=== PATIENT | female | born 1980 | race Caucasian/White ===

== ENCOUNTER 2018-03-01 00:22 | Observation (INO) | payer BC, OTHER ==
[2018-03-01] MEDS ORDERED: Sodium Chloride 0.9% 10 ML Syringe FLUSH PRN (00:36)
[2018-03-01] MEDS ORDERED: Sodium Chloride 0.9% 1,000 ML IV ONE (00:36)
[2018-03-01] MEDS ORDERED: Ondansetron 4 MG/2 ML SDV IVPUSH ONE (00:36)
--- NOTE | 2018-03-01 00:51 | EDM.PDOCBH ---
ED HPI GENERAL MEDICAL PROBLEM - General Chief Complaint: Behavioral/Psych Stated Complaint: overdose attempt Time Seen by Provider: 03/01/18 00:35 Source of Information: Reports: Patient, EMS, Family History Limitations: Reports: Intoxication - History of Present Illness INITIAL COMMENTS - FREE TEXT/NARRATIVE: Patient is brought in via EMS after her called EMS after she took 6 trazadone and has had approximately 9-10 beers ingested. Her had apparently threatened to take her children from her custody causing the overdose. She is currently dry heaving and violently nauseated. Approximate time of trazadone ingestion is stated to be 23:45. After visiting with her, she stated she has been having difficulty sleeping so she was going to take 1 of the trazadone to which her replied "I thought you weren't supposed to take these when you are drinking" and she said "1 won't hurt" and he told her to take them all then. She then took 5 more. She flushed the remaining pills. She has been struggling with increased depression and more thoughts of suicide. She has been meeting with counselors and psychiatrists and her medications have been changed several times. She states she sometimes feels she just doesn't want to be here anymore. 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: Psychiatric History: Reports: Depression - Past Surgical History GI Surgical History: Reports: Appendectomy, Bariatric Procedure, Cholecystectomy Female Surgical History: Reports: Section ED ROS GENERAL - Review of Systems Review Of Systems: See Below Constitutional: Reports: No Symptoms HEENT: Reports: No Symptoms Respiratory: Reports: No Symptoms Cardiovascular: Reports: No Symptoms Endocrine: Reports: No Symptoms GI/Abdominal: Reports: Nausea, Vomiting : Reports: No Symptoms Musculoskeletal: Reports: No Symptoms Skin: Reports: No Symptoms Neurological: Reports: No Symptoms Psychiatric: Reports: Depression, Other (trazodone overdose) Hematologic/Lymphatic: Reports: No Symptoms Immunologic: Reports: No Symptoms ED EXAM, BEHAVIORAL HEALTH - Physical Exam Exam: See Below Exam Limited By: No Limitations General Appearance: Alert, WD/WN, Moderate Distress Eye Exam: Bilateral Eye: EOMI, Normal Inspection, PERRL Ears: Normal TMs Throat/Mouth: Normal Inspection, Normal Lips, Normal Teeth, Normal Gums, Normal Oropharynx, Normal Voice, No Airway Compromise Head: Atraumatic, Normocephalic Neck: Normal Inspection, Supple, Non-Tender, Full Range of Motion Respiratory/Chest: No Respiratory Distress, Lungs Clear, Normal Breath Sounds, No Accessory Muscle Use, Chest Non-Tender Cardiovascular: Normal Peripheral Pulses, Regular Rate, Rhythm, No Edema, No Gallop, No JVD, No Murmur, No Rub GI/Abdominal: Normal Bowel Sounds, Soft, Non-Tender, No Organomegaly, No Distention, No Abnormal Bruit, No Mass Back Exam: Normal Inspection, Full Range of Motion, NT Extremities: Normal Inspection, Normal Range of Motion, Non-Tender, Normal Capillary Refill, No Pedal Edema Neurological: Alert, Normal Mood/Affect, CN II-XII Intact, Normal Cognition, Normal Gait, Normal Reflexes, No Motor/Sensory Deficits, Oriented x 3 Psychiatric: Alert, Depressed Mood, Other (attempted suicide) Skin Exam: Warm, Dry, Intact, Normal color, No rash COURSE, BEHAVIORAL HEALTH COMP - Course Orders, Labs, Meds: Active Orders 24 hr Category Date Time Status EKG Documentation Completion [RC] STAT Care 03/01/18 00:36 Ordered CBC WITH AUTO DIFF [HEME] Stat Lab 03/01/18 00:36 Ordered COMPREHENSIVE METABOLIC PN,CMP [CHEM] Stat Lab 03/01/18 00:36 Ordered ETHANOL BLOOD MEDICAL [CHEM] Stat Lab 03/01/18 00:36 Ordered TROPONIN I [CHEM] Stat Lab 03/01/18 00:36 Ordered UA W/MICROSCOPIC [URIN] Stat Lab 03/01/18 00:36 Ordered Ondansetron [Zofran] Med 03/01/18 00:36 Once 4 mg IVPUSH ONETIME ONE Sodium Chloride 0.9% [Normal Saline] 1,000 ml Med 03/01/18 00:36 Ordered IV ONETIME Sodium Chloride 0.9% [Saline Flush] Med 03/01/18 00:36 Ordered 10 ml FLUSH ASDIRECTED PRN Saline Lock Insert [OM.PC] Routine Oth 03/01/18 00:36 Ordered Medication Orders Sodium Chloride (Normal Saline) 1,000 mls @ 999 mls/hr IV ONETIME ONE Stop: 03/01/18 01:36 Ondansetron HCl (Zofran) 4 mg IVPUSH ONETIME ONE Stop: 03/01/18 00:37 Sodium Chloride (Saline Flush) 10 ml FLUSH ASDIRECTED PRN PRN Reason: Keep Vein Open Medications Generic Name Dose Route Start Last Admin Trade Name Freq PRN Reason Stop Dose Admin Sodium Chloride 1,000 mls @ 999 mls/hr 03/01/18 00:36 Normal Saline IV 03/01/18 01:36 ONETIME ONE Ondansetron HCl 4 mg 03/01/18 00:36 Zofran IVPUSH 03/01/18 00:37 ONETIME ONE Sodium Chloride 10 ml 03/01/18 00:36 Saline Flush FLUSH ASDIRECTED PRN Keep Vein Open Departure - Departure Time of Disposition: 01:38 Disposition: Refer to Observation Condition: Good Clinical Impression: Depressive disorder, Drug overdose, intentional, Alcohol abuse - Discharge Information *PRESCRIPTION DRUG MONITORING PROGRAM REVIEWED*: Not Applicable *COPY OF PRESCRIPTION DRUG MONITORING REPORT IN PATIENT BERE: Not Applicable Instructions: Drug Overdose, Suicidal Feelings: How to Help Yourself, Helping Someone Who is Suicidal, Major Depressive Disorder, Adult, [id number] Forms: ED Department Discharge - Problem List & Annotations (1) Alcohol abuse SNOMED Code(s): 13202178 Code(s): F10.10 - ALCOHOL ABUSE, UNCOMPLICATED Status: Acute Priority: Medium (2) Drug overdose, intentional SNOMED Code(s): 09254564 Code(s): T50.902A - POISONING BY UNSP DRUG/MEDS/BIOL SUBST, SELF-HARM, INIT Status: Acute Priority: Medium Qualifiers: Encounter type: initial encounter Qualified Code(s): T50.902A - Poisoning by unspecified drugs, medicaments and biological substances, intentional self- harm, initial encounter - Problem List Review Problem List Initiated/Reviewed/Updated: Yes - My Orders Last 24 Hours: My Active Orders 03/01/18 00:36 EKG Documentation Completion [RC] STAT CBC WITH AUTO DIFF [HEME] Stat COMPREHENSIVE METABOLIC PN,CMP [CHEM] Stat ETHANOL BLOOD MEDICAL [CHEM] Stat TROPONIN I [CHEM] Stat UA W/MICROSCOPIC [URIN] Stat Ondansetron [Zofran] 4 mg IVPUSH ONETIME ONE Sodium Chloride 0.9% [Normal Saline] 1,000 ml IV ONETIME Sodium Chloride 0.9% [Saline Flush] 10 ml FLUSH ASDIRECTED PRN Saline Lock Insert [OM.PC] Routine - Assessment/Plan Last 24 Hours: My Active Orders 03/01/18 00:36 EKG Documentation Completion [RC] STAT CBC WITH AUTO DIFF [HEME] Stat COMPREHENSIVE METABOLIC PN,CMP [CHEM] Stat ETHANOL BLOOD MEDICAL [CHEM] Stat TROPONIN I [CHEM] Stat UA W/MICROSCOPIC [URIN] Stat Ondansetron [Zofran] 4 mg IVPUSH ONETIME ONE Sodium Chloride 0.9% [Normal Saline] 1,000 ml IV ONETIME Sodium Chloride 0.9% [Saline Flush] 10 ml FLUSH ASDIRECTED PRN Saline Lock Insert [OM.PC] Routine Assessment:: Alcohol abuse Intentional drug overdose Plan: Plan: Admit to observation 1. alcohol abuse: supplement with thiamine, folic acid, hydration, continuous telemetry, social service consultation for inpatient treatment 2. intentional drug overdose: continuous telemetry, hydration, zofran for nausea
[2018-03-01 01:21] LABS: CHLORIDE,CL 106 mmol/L (98-107); SODIUM,NA 141 mmol/L (136-145)
[2018-03-01 01:22] LABS: ANION GAP 14.5 mmol/L (10-20)
[2018-03-01] MEDS ORDERED: Acetaminophen/HYDROcodone 325-5 MG Tab PO PRN (01:42)
[2018-03-01] MEDS ORDERED: Ondansetron 4 MG/2 ML SDV IV PRN (01:42)
[2018-03-01] MEDS ORDERED: Ibuprofen 200 MG Tab PO PRN (01:42)
[2018-03-01] MEDS ORDERED: Thiamine 100 MG Tab PO ONE (01:46)
[2018-03-01] MEDS ORDERED: traZODone 50 MG Tab PO PRN (01:47)
[2018-03-01] MEDS: Folic Acid 1 MG Tab PO SCH ×2 (02:52→09:29)
[2018-03-01] MEDS: Lactated Ringers 1,000 ML IV SCH ×2 (02:53→10:37)
[2018-03-01] MEDS ORDERED: Sertraline 100 MG Tab PO SCH (08:00)
[2018-03-01] MEDS ORDERED: ARIPIPRAZOLE 2 MG PO SCH (08:00)
[2018-03-01] MEDS ORDERED: LAMOTRIGINE 75 MG PO SCH (08:00)
[2018-03-01 10:50] LABS: CHLORIDE,CL 110 mmol/L (98-107); SODIUM,NA 142 mmol/L (136-145)
[2018-03-01 10:56] LABS: ANION GAP 10.5 mmol/L (10-20)
--- NOTE | 2018-03-01 14:01 | PCM.DCSUM1 ---
Discharge Summary - Hospital Course HPI Initial Comments: Patient is brought in via EMS after her called EMS after she took 6 trazadone and has had approximately 9-10 beers ingested. Her had apparently threatened to take her children from her custody causing the overdose. She was dry heaving and violently nauseated. Approximate time of trazadone ingestion is stated to be 23:45. After visiting with her, she stated she has been having difficulty sleeping so she was going to take 1 of the trazadone to which her replied "I thought you weren't supposed to take these when you are drinking" and she said "1 won't hurt" and he told her to take them all then. She then took 5 more. She flushed the remaining pills. She has been struggling with increased depression and more thoughts of suicide. She has been meeting with counselors and psychiatrists and her medications have been changed several times. She states she sometimes feels she just doesn' t want to be here anymore. The patient and have a long standing history of relationship issues. The patient has been drinking as a coping mechanism. The patient did not intentionally take more Trazodone. It was a knee-jerk reaction because she was fighting with her . Diagnosis: Stroke: No Modified Uziel Scale: No Symptoms at All Modified Assumption Scale Score: 0 - Discharge Data Discharge Date: 03/01/18 Discharge Disposition: Home, Self-Care 01 Condition: Stable - Patient Summary/Data Consults: Consultations 03/01/18 01:42 Consult to Case Management/Elevators Inspector [CONS] Routine Hospital Course: Patient remained hemodynamically stable. Afebrile. Patient tolerated by mouth fluids and food without any problems. The patient did not have any adverse events related to alcohol or trazodone. The patient did not have any problems with urination or bowel movements. - Patient Instructions Diet: Regular Diet as Tolerated Activity: Rest and Relax Today Driving: May Drive Today Showering/Bathing: May Shower Notify Provider of: Fever, Nausea and/or Vomiting - Discharge Plan *PRESCRIPTION DRUG MONITORING PROGRAM REVIEWED*: Not Applicable *COPY OF PRESCRIPTION DRUG MONITORING REPORT IN PATIENT BERE: Not Applicable Home Medications: Home Meds ARIPiprazole [Aripiprazole] 2 mg PO DAILY 03/01/18 [History] Sertraline HCl 100 mg PO DAILY 03/01/18 [History] lamoTRIgine [Lamotrigine] 75 mg PO DAILY 03/01/18 [History] traZODone HCl [Trazodone HCl] 50 mg PO BEDTIME PRN 03/01/18 [History] Patient Handouts: Major Depressive Disorder, Adult, [id number], Suicidal Feelings: How to Help Yourself, Helping Someone Who is Suicidal, Drug Overdose Referrals: Mel Phipps PA-C [Primary Care Provider] - 03/07/18 12:40 pm (Follow up appointment with Mel Phipps on , March 07, 2018) - Discharge Summary/Plan Comment DC Time >30 min.: Yes Discharge Summary/Plan Comment: Patient will be discharged home today into the care of her . The patient will be scheduled for a follow-up appointment with Mel Phipps next week. No changes with any home medications. The patient was given information for marriage counseling as well as other mental health professionals. The patient was stable at the time of discharge. - General Info Date of Service: 03/01/18 Functional Status: Reports: Pain Controlled, Tolerating Diet, Ambulating, Urinating Numeric/FACES Score: 0 - Review of Systems General: Denies: Fever, Weakness, Chills Pulmonary: Denies: Shortness of Breath, Cough Cardiovascular: Denies: Chest Pain, Palpitations Gastrointestinal: Denies: Abdominal Pain, Nausea, Vomiting Skin: Reports: No Symptoms Neurological: Reports: No Symptoms - Patient Data Vitals - Most Recent: Last Vital Signs Temp 36.6 C 03/01/18 13:31 Pulse 84 03/01/18 13:31 Resp 16 03/01/18 13:31 BP 127/71 03/01/18 13:31 Pulse Ox 98 03/01/18 13:31 Weight - Most Recent: 82.781 kg I&O - Last 24 hours: Intake & Output 02/28/18 03/01/18 03/01/18 22:59 06:59 14:59 Intake Total 2183 Balance 2183 Lab Results - Last 24 hrs: Laboratory Results - last 24 hr 03/01/18 03/01/18 03/01/18 Range/Units 00:45 00:45 01:25 WBC 7.1 (4.0-10.0) x10^3/uL RBC 3.88 L (4.00-5.50) x10^6/uL Hgb 9.6 L (12.0-16.0) g/dL Hct 30.7 L (33.0-47.0) % MCV 79.1 (78.0-93.0) fL MCH 24.7 L (26.0-32.0) pg MCHC 31.3 L (32.0-36.0) g/dL RDW Coeff of Jose Miguel 15.8 H (10.0-15.0) % Plt Count 247 (130-400) x10^3/uL Neut % (Auto) 35.9 L (50.0-80.0) % Lymph % (Auto) 55.3 H (25.0-50.0) % [place] % (Auto) 6.0 (2.0-11.0) % Eos % (Auto) 2.4 (0.0-4.0) % Baso % (Auto) 0.4 (0.2-1.2) % Sodium 141 (136-145) mmol/L Potassium 3.5 (3.5-5.1) mmol/L Chloride 106 (98-107) mmol/L Carbon Dioxide 24 (21-32) mmol/L Anion Gap 14.5 (10-20) mmol/L BUN 6 L (7-18) mg/dL Creatinine 0.7 (0.55-1.02) mg/dL Est Cr Clr Drug Dosing TNP Estimated GFR (MDRD) > 60 Glucose 80 (74-106) mg/dL Calcium 8.7 (8.5-10.1) mg/dL Corrected Calcium 9.10 (8.5-10.1) mg/dL Magnesium (1.8-2.4) mg/dL Total Bilirubin 0.2 (0.2-1.0) mg/dL AST 16 (15-37) U/L ALT 18 (14-59) U/L Alkaline Phosphatase 86 (46-116) U/L Troponin I < 0.017 (<=0.056) ng/mL Total Protein 7.8 (6.4-8.2) g/dL Albumin 3.5 (3.4-5.0) g/dL Globulin 4.3 Albumin/Globulin Ratio 0.81 Urine Color Yellow (YELLOW) Urine Appearance Slightly cloudy H (CLEAR) Urine pH 6.5 (5.0-8.0) Ur Specific [place] <=1.005 Urine Protein Negative (NEGATIVE) mg/dL Urine Glucose (UA) Negative (NEGATIVE) mg/dL Urine Ketones Negative (NEGATIVE) mg/dL Urine Occult Blood Moderate H (NEGATIVE) Urine Nitrite Negative (NEGATIVE) Urine Bilirubin Negative (NEGATIVE) Urine Urobilinogen 0.2 (0.2) EU/dL Ur Leukocyte Esterase Negative (NEGATIVE) Urine RBC 5-10 H (NOT SEEN) /HPF Urine WBC 0-5 (NOT SEEN) /HPF Ur Squamous Epith Cells Few H (NEGATIVE) /HPF Urine Bacteria Rare (NEGATIVE) /HPF Urine Mucus Not seen (NEGATIVE) /LPF Urine Opiates Screen (NEGATIVE) Ur Buprenorphine Scrn (NEGATIVE) Ur Oxycodone Screen (NEGATIVE) Urine Methadone Screen (NEGATIVE) Ur Barbiturates Screen (NEGATIVE) Ur Tricyclics Screen (NEGATIVE) Ur Amphetamine Screen (NEGATIVE) U Methamphetamines Scrn (NEGATIVE) Urine MDMA Screen (NEGATIVE) U Benzodiazepines Scrn (NEGATIVE) U Cocaine Metab Screen (NEGATIVE) U Marijuana (THC) Screen (NEGATIVE) Ethyl Alcohol 172 H (0-3) mg/dL 03/01/18 03/01/18 Range/Units 01:25 10:25 WBC (4.0-10.0) x10^3/uL RBC (4.00-5.50) x10^6/uL Hgb (12.0-16.0) g/dL Hct (33.0-47.0) % MCV (78.0-93.0) fL MCH (26.0-32.0) pg MCHC (32.0-36.0) g/dL RDW Coeff of Jose Miguel (10.0-15.0) % Plt Count (130-400) x10^3/uL Neut % (Auto) (50.0-80.0) % Lymph % (Auto) (25.0-50.0) % [place] % (Auto) (2.0-11.0) % Eos % (Auto) (0.0-4.0) % Baso % (Auto) (0.2-1.2) % Sodium 142 (136-145) mmol/L Potassium 4.5 (3.5-5.1) mmol/L Chloride 110 H (98-107) mmol/L Carbon Dioxide 26 (21-32) mmol/L Anion Gap 10.5 (10-20) mmol/L BUN 8 (7-18) mg/dL Creatinine 0.8 (0.55-1.02) mg/dL Est Cr Clr Drug Dosing 94.54 Estimated GFR (MDRD) > 60 Glucose 80 (74-106) mg/dL Calcium 8.2 L (8.5-10.1) mg/dL Corrected Calcium (8.5-10.1) mg/dL Magnesium 1.8 (1.8-2.4) mg/dL Total Bilirubin (0.2-1.0) mg/dL AST (15-37) U/L ALT (14-59) U/L Alkaline Phosphatase (46-116) U/L Troponin I (<=0.056) ng/mL Total Protein (6.4-8.2) g/dL Albumin (3.4-5.0) g/dL Globulin Albumin/Globulin Ratio Urine Color (YELLOW) Urine Appearance (CLEAR) Urine pH (5.0-8.0) Ur Specific [place] Urine Protein (NEGATIVE) mg/dL Urine Glucose (UA) (NEGATIVE) mg/dL Urine Ketones (NEGATIVE) mg/dL Urine Occult Blood (NEGATIVE) Urine Nitrite (NEGATIVE) Urine Bilirubin (NEGATIVE) Urine Urobilinogen (0.2) EU/dL Ur Leukocyte Esterase (NEGATIVE) Urine RBC (NOT SEEN) /HPF Urine WBC (NOT SEEN) /HPF Ur Squamous Epith Cells (NEGATIVE) /HPF Urine Bacteria (NEGATIVE) /HPF Urine Mucus (NEGATIVE) /LPF Urine Opiates Screen Negative (NEGATIVE) Ur Buprenorphine Scrn Negative (NEGATIVE) Ur Oxycodone Screen Negative (NEGATIVE) Urine Methadone Screen Negative (NEGATIVE) Ur Barbiturates Screen Negative (NEGATIVE) Ur Tricyclics Screen Negative (NEGATIVE) Ur Amphetamine Screen Negative (NEGATIVE) U Methamphetamines Scrn Negative (NEGATIVE) Urine MDMA Screen Negative (NEGATIVE) U Benzodiazepines Scrn Negative (NEGATIVE) U Cocaine Metab Screen Negative (NEGATIVE) U Marijuana (THC) Screen Negative (NEGATIVE) Ethyl Alcohol < 3 (0-3) mg/dL Med Orders - Current: Current Medications Hydrocodone Bitart/Acetaminophen ([place] 325-5 Mg) 1 tab PO Q4H PRN PRN Reason: Pain (moderate 4-6) Folic Acid (Folic Acid) 1 mg PO DAILY DANIA Last Admin: 03/01/18 09:29 Dose: 1 mg Lactated Ringer's (Ringers, Lactated) 1,000 mls @ 125 mls/hr IV ASDIRECTED [facility] Last Admin: 03/01/18 10:37 Dose: 125 mls/hr Ibuprofen (Motrin) 600 mg PO Q6H PRN PRN Reason: Pain (mild 1-3) Non-Formulary Medication (Aripiprazole) 2 mg PO DAILY [facility] Non-Formulary Medication (Lamotrigine [Lamotrigine]) 75 mg PO DAILY [facility] Ondansetron HCl (Zofran) 4 mg IV Q4H PRN PRN Reason: Nausea/Vomiting Sertraline HCl (Zoloft) 100 mg PO DAILY [facility] Last Admin: 03/01/18 09:29 Dose: 100 mg Sodium Chloride (Saline Flush) 10 ml FLUSH ASDIRECTED PRN PRN Reason: Keep Vein Open Last Admin: 03/01/18 02:55 Dose: 10 ml Trazodone HCl (Trazodone) 25 - 100 mg PO BEDTIME PRN PRN Reason: Sleep Discontinued Medications Sodium Chloride (Normal Saline) 1,000 mls @ 999 mls/hr IV ONETIME ONE Stop: 03/01/18 01:36 Last Admin: 03/01/18 00:50 Dose: 999 mls/hr Ondansetron HCl (Zofran) 4 mg IVPUSH ONETIME ONE Stop: 03/01/18 00:37 Last Admin: 03/01/18 00:54 Dose: 4 mg Thiamine HCl (Vitamin B-1) 100 mg PO ONETIME ONE Stop: 03/01/18 01:47 Last Admin: 03/01/18 02:51 Dose: 100 mg - Exam General: Reports: Alert, Oriented, Cooperative, No Acute Distress HEENT: Reports: Pupils Equal, Pupils Reactive Neck: Reports: Supple Lungs: Reports: Clear to Auscultation, Normal Respiratory Effort Cardiovascular: Reports: Regular Rate, Regular Rhythm GI/Abdominal Exam: Normal Bowel Sounds, Soft, Non-Tender Skin: Reports: Warm, Dry, Intact Neurological: Reports: No New Focal Deficit Psy/Mental Status: Reports: Alert, Normal Affect, Normal Mood *Q Meaningful Use (DIS) - VTE *Q VTE Criteria *Q: No risk for falls at time of discharge
== END 2018-03-01 15:00 | disposition home or self-care (01) ==
LOC: VM.ED 00:22 → VM.MS 01:25
PROVIDERS: ADMIT Nurse Practitioner Family; ATTEND Nurse Practitioner Family
DX: T43.212A Poisoning by selective serotonin and norepinephrine reuptake inhibitors, intentional self-harm, initial encounter (principal); F10.10 Alcohol abuse, uncomplicated; Y90.6 Blood alcohol level of 120-199 mg/100 ml; Z79.899 Other long term (current) drug therapy
CPT/HCPCS: 36415; 80048; 80053; 80305-QW; 81001; 83735; 84484; 85025; 93005; 96361; 96374; 99285; A9270-GY; G0378; G0480; J2405; J7030; J7050; J7120

== ENCOUNTER 2019-02-19 16:08 | Emergency (ER) | payer BC ==
--- NOTE | 2019-02-19 16:59 | EDM.PDOC ---
ED HPI GENERAL MEDICAL PROBLEM - General Chief Complaint: Back Pain or Injury Stated Complaint: SEVERE BACK PAIN Time Seen by Provider: 02/19/19 16:40 Source of Information: Reports: Patient History Limitations: Reports: No Limitations - History of Present Illness INITIAL COMMENTS - FREE TEXT/NARRATIVE: Patient states last night approximately 7 or 8:00 she went to the restroom and had intense burning with urination after just a little volume with pain radiating from her lower back up into her upper back she states that it hurt all night "better states this morning upon urinating same signs and symptoms repeated itself she describes it as an 8 out of 10 pain sharp stabbing from her bladder radiating around both sides into her lower back and radiating up to her mid back She denies any fever chills nausea vomiting urinary frequency or hesitancy no night sweats or fatigue no abdominal pain has been eating and drinking fine tried one Tylenol last night no relief Duration: Day(s): Quality: Reports: Sharp, Stabbing, Throbbing Severity: Severe Worsens with: Reports: Other (Urination) Treatments 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 Middle Back Pain Score (Numeric/FACES): 8 - Related Data Allergies Allergy/AdvReac Type Severity Reaction Status Date / Time No Known Allergies Allergy Verified 02/19/19 16:35 Home Meds: Home Meds Sertraline HCl 75 mg DAILY 02/19/19 [History] Past Medical History 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: Psychiatric History: Reports: Depression - Past Surgical History GI Surgical History: Reports: Appendectomy, Bariatric Procedure, Cholecystectomy Female Surgical History: Reports: Section, Hysterectomy Social & Family History - Tobacco Use Smoking Status *Q: Current Every Day Smoker Years of Tobacco use: 20 Packs/Tins Daily: 0.5 - Caffeine Use Caffeine Use: Reports: Coffee - Alcohol Use Days Per Week of Alcohol Use: 5 Number of Drinks Per Day: 3 Total Drinks Per Week: 15 - Recreational Drug Use Recreational Drug Use: No ED ROS GENERAL - Review of Systems Review Of Systems: See Below Constitutional: Denies: Fever, Chills, Malaise, Weakness, Fatigue, Night Sweats , Decreased Appetite HEENT: Reports: No Symptoms Respiratory: Reports: No Symptoms Cardiovascular: Reports: No Symptoms Endocrine: Reports: No Symptoms GI/Abdominal: Denies: Abdominal Pain, Constipation, Decreased Appetite, Distension, Nausea, Vomiting : Reports: Dysuria, Flank Pain, Pain. Denies: Discharge, Frequency, Hematuria , Incontinence, Urgency, Urinary Retention Musculoskeletal: Reports: Back Pain Skin: Reports: No Symptoms Neurological: Reports: No Symptoms Psychiatric: Reports: No Symptoms Immunologic: Reports: No Symptoms ED EXAM,LOWER BACK PAIN/INJURY - Physical Exam Exam: See Below Exam Limited By: No Limitations General Appearance: Alert, WD/WN, No Apparent Distress, Other (PT noted from across the room text messaging on phone and watching video no acute distress all vitals are within normal limits upon entering the room patient started writhing in pain) Eye Exam: Bilateral Eye: EOMI, PERRL Throat/Mouth: Normal Inspection, Normal Lips, Normal Teeth, Normal Gums, Normal Oropharynx, Normal Voice, No Airway Compromise Neck: Full Range of Motion Respiratory/Chest: No Respiratory Distress, Lungs Clear, Normal Breath Sounds, No Accessory Muscle Use, Chest Non-Tender Cardiovascular: Normal Peripheral Pulses, Regular Rate, Rhythm, No Edema, No Gallop, No JVD, No Murmur, No Rub GI/Abdominal: Normal Bowel Sounds, Soft, Non-Tender, No Organomegaly, No Distention Back Exam: Normal Inspection, Full Range of Motion. No: CVA Tenderness (L), CVA Tenderness (R), Decreased Range of Motion Extremities: Normal Inspection, Normal Range of Motion, Non-Tender, No Pedal Edema Neurological: Alert, Normal Mood/Affect, Normal Dorsiflexion, CN II-XII Intact, Normal Plantar Flexion, Normal Gait, No Motor/Sensory Deficits, Oriented x 3 Skin Exam: Warm, Dry, Intact, Normal Color, No Rash Course - Vital Signs Text/Narrative:: Urinalysis is ordered at this time Rechecked patient actively playing on phone no acute distress PT states she has chronic anemia does not know what type has never had been transfused before CBC today hemoglobin and hematocrit 7/25 BUN/creatinine 13/0.07 Urine positive protein and positive blood and no nitrites positive leuk positive white blood cells will treat with Septra DS one by mouth every 12 hours 5 days and send urine C&S Spoke with Dr. Alex Phipps he agrees patient is okay to be seen outpatient secondary she is not symptomatic with the anemia have her call the clinic first thing in the morning and she will get an appointment to be seen tomorrow Last Recorded V/S: Last Vital Signs Temp 36.4 C 02/19/19 16:15 Pulse 95 02/19/19 16:15 Resp 18 02/19/19 16:15 BP 127/77 02/19/19 16:15 Pulse Ox - Orders/Labs/Meds Labs: Laboratory Tests 02/19/19 02/19/19 02/19/19 Range/Units 16:50 17:39 17:39 WBC 7.3 (4.0-10.0) x10^3/uL RBC 3.57 L (4.00-5.50) x10^6/uL Hgb 7.1 L D (12.0-16.0) g/dL Hct 25.3 L (33.0-47.0) % MCV 70.9 L D (78.0-93.0) fL MCH 19.9 L (26.0-32.0) pg MCHC 28.1 L (32.0-36.0) g/dL RDW Coeff of Jose Miguel 19.8 H (10.0-15.0) % Plt Count 192 (130-400) x10^3/uL Neut % (Auto) 63.9 (50.0-80.0) % Lymph % (Auto) 26.9 (25.0-50.0) % [place] % (Auto) 7.7 (2.0-11.0) % Eos % (Auto) 1.1 (0.0-4.0) % Baso % (Auto) 0.4 (0.2-1.2) % Sodium 142 (136-145) mmol/L Potassium 4.1 (3.5-5.1) mmol/L Chloride 107 (98-107) mmol/L Carbon Dioxide 27 (21-32) mmol/L Anion Gap 12.1 (10-20) mmol/L BUN 13 (7-18) mg/dL Creatinine 0.7 (0.55-1.02) mg/dL Est Cr Clr Drug Dosing 107.00 mL/min Estimated GFR (MDRD) > 60 Glucose 82 (74-106) mg/dL Calcium 8.5 (8.5-10.1) mg/dL Urine Color Yellow (YELLOW) Urine Appearance Turbid H (CLEAR) Urine pH 6.0 (5.0-8.0) Ur Specific [place] >=1.030 Urine Protein >=300 H (NEGATIVE) mg/dL Urine Glucose (UA) Negative (NEGATIVE) mg/dL Urine Ketones Negative (NEGATIVE) mg/dL Urine Occult Blood Moderate H (NEGATIVE) Urine Nitrite Negative (NEGATIVE) Urine Bilirubin Negative (NEGATIVE) Urine Urobilinogen 0.2 (0.2) EU/dL Ur Leukocyte Esterase Small H (NEGATIVE) Urine RBC 30-40 H (NOT SEEN) /HPF Urine WBC 50-75 H (NOT SEEN) /HPF Urine WBC Clumps Few Ur Squamous Epith Cells Many H (NEGATIVE) /HPF Amorphous Sediment Few Urine Bacteria Many H (NEGATIVE) /HPF Urine Mucus Many H (NEGATIVE) /LPF Meds: Medications Discontinued Medications Generic Name Dose Route Start Last Admin Trade Name Freq PRN Reason Stop Dose Admin Lactated Ringer's 1,000 mls @ 1,000 mls/hr 02/19/19 17:20 02/19/19 17:40 Ringers, Lactated IV 02/19/19 18:19 1,000 mls/hr ONETIME ONE Administration Departure - Departure Time of Disposition: 18:50 Disposition: Home, Self-Care 01 Condition: Good Clinical Impression: Anemia, Dysuria, UTI (urinary tract infection) - Discharge Information Referrals: Mel Phipps PA-C [Primary Care Provider] - Forms: ED Department Discharge
[2019-02-19] MEDS ORDERED: Lactated Ringers 1,000 ML IV ONE (17:20)
[2019-02-19 18:03] LABS: CHLORIDE,CL 107 mmol/L (98-107); SODIUM,NA 142 mmol/L (136-145)
[2019-02-19 18:13] LABS: ANION GAP 12.1 mmol/L (10-20)
[2019-02-19] MEDS ORDERED: Sulfamethoxazole/Trimethoprim 800-160 MG Tab PO ONE (18:48)
[2019-02-19] MEDS ORDERED: Phenazopyridine 95 MG Tab PO SCH (20:00)
== END 2019-02-19 19:15 | disposition home or self-care (01) ==
LOC: VM.ED 16:08
DX: N39.0 Urinary tract infection, site not specified (principal); D64.9 Anemia, unspecified; F17.210 Nicotine dependence, cigarettes, uncomplicated; Z90.49 Acquired absence of other specified parts of digestive tract; Z79.899 Other long term (current) drug therapy; Z90.710 Acquired absence of both cervix and uterus
CPT/HCPCS: 80048; 81001; 85025; 87086; 87088; 87186; 96360; 99283; A9270; J7120

== ENCOUNTER 2020-02-04 23:36 | Emergency (ER) | payer BC, OTHER ==
[2020-02-05] MEDS ORDERED: Lactated Ringers 1,000 ML IV ONE (00:20)
[2020-02-05] MEDS ORDERED: Ondansetron 4 MG/2 ML SDV IV ONE (00:28)
--- NOTE | 2020-02-05 01:13 | EDM.PDOC ---
ED HPI GENERAL MEDICAL PROBLEM - General Chief Complaint: General Stated Complaint: Fever, dizziness, passed out, headache Time Seen by Provider: 02/04/20 23:55 Source of Information: Reports: Patient History Limitations: Reports: No Limitations - History of Present Illness INITIAL COMMENTS - FREE TEXT/NARRATIVE: Patient comes emergency department today with 2 to 3 days complaints of generalized malaise fatigue low-grade fever. This patient for the last 2 to 3 days is complained of generalized malaise and fatigue. Low-grade fever at home but she did not check. She has been staying away from work but not away from her family. She has had a dry hacking nonproductive cough. No pain in her chest. She has had some nausea without vomiting. She is also had some diarrhea . No hematuria dysuria or urinary frequency. She is unaware of any COVID exposure but she also does complain of loss of taste and smell. 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 And just overall an healthy feeling past few days. She does smoke cigarettes. She really denies any other past medical history. [place] any paresthesias or upper or lower extremities. She did have a syncopal episode at home today where she just kind of collapsed to the ground. She is never had any palpitations. 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 ED EXAM, GENERAL - Physical Exam Exam: See Below Exam Limited By: No Limitations General Appearance: Alert, WD/WN, No Apparent Distress Eye Exam: Bilateral Eye: Normal Inspection, PERRL Ears: Normal External Exam, Normal TMs Nose: Normal Inspection, Normal Mucosa Throat/Mouth: Normal Lips. No: Normal Inspection (Oral mucosa is dry) Head: Atraumatic, Normocephalic Neck: Normal Inspection, Supple, Non-Tender Respiratory/Chest: No Respiratory Distress, Lungs Clear, Normal Breath Sounds, No Accessory Muscle Use, Chest Non-Tender Cardiovascular: Normal Peripheral Pulses, Regular Rate, Rhythm, Tachycardia GI/Abdominal: Normal Bowel Sounds, Soft, Non-Tender (Female) Exam: Deferred Rectal (Female) Exam: Deferred Back Exam: Normal Inspection, Full Range of Motion. No: CVA Tenderness (L), CVA Tenderness (R) Extremities: Normal Inspection, Normal Range of Motion, Non-Tender, No Pedal Edema, Normal Capillary Refill Neurological: Alert, Oriented, Normal Cognition, Normal Gait, No Motor/Sensory Deficits Psychiatric: Normal Affect, Normal Mood Skin Exam: Warm, Dry, Intact, Normal Color, No Rash EKG INTERPRETATION EKG Date: 02/05/20 Time: 00:48 Rhythm: NSR Rate (Beats/Min): 92 [place]: Normal P-Wave: Present QRS: Normal ST-T: Normal QT: Normal Course - Vital Signs Last Recorded V/S: Last Vital Signs Temp 97.3 F 02/05/20 00:33 Pulse 106 H 02/05/20 00:33 Resp 16 02/05/20 00:33 BP 126/82 02/05/20 00:33 Pulse Ox 99 02/05/20 00:33 - Orders/Labs/Meds Orders: Active Orders 24 hr Category Date Time Status EKG Documentation Completion [RC] STAT Care 02/05/20 00:18 Active Chest 1V Frontal [CR] Stat Exams 02/05/20 00:14 Taken CULTURE BLOOD [BC] Stat Lab 02/05/20 00:45 Received PROCALCITONIN [REF] Stat Lab 02/05/20 00:45 Received Isolation [COMM] Stat Oth 02/05/20 00:18 Ordered Labs: Laboratory Tests 02/04/20 02/05/20 02/05/20 Range/Units 23:45 00:45 00:45 WBC (4.0-10.0) x10^3/uL RBC (4.00-5.50) x10^6/uL Hgb (12.0-16.0) g/dL Hct (33.0-47.0) % MCV (78.0-93.0) fL MCH (26.0-32.0) pg MCHC (32.0-36.0) g/dL RDW Coeff of Jose Miguel (10.0-15.0) % Plt Count (130-400) x10^3/uL Neut % (Auto) (50.0-80.0) % Lymph % (Auto) (25.0-50.0) % [place] % (Auto) (2.0-11.0) % Eos % (Auto) (0.0-4.0) % Baso % (Auto) (0.2-1.2) % PT 9.3 L (9.5-12.3) SEC INR 0.8 L (2.0-3.5) APTT 24.1 L (25.6-32.8) SEC Sodium 141 (136-145) mmol/L Potassium 3.5 (3.5-5.1) mmol/L Chloride 104 (98-107) mmol/L Carbon Dioxide 24 (21-32) mmol/L Anion Gap 16.5 (10-20) mmol/L BUN 8 (7-18) mg/dL Creatinine 0.8 (0.55-1.02) mg/dL Est Cr Clr Drug Dosing 92.72 mL/min Estimated GFR (MDRD) > 60 Glucose 82 (74-106) mg/dL Lactic Acid (0.4-2.0) mmol/L Calcium 8.1 L (8.5-10.1) mg/dL Corrected Calcium 8.50 (8.5-10.1) mg/dL Ferritin (8-252) ng/mL Total Bilirubin 0.3 (0.2-1.0) mg/dL AST 23 (15-37) U/L ALT 24 (14-59) U/L Alkaline Phosphatase 121 H (46-116) U/L Creatine Kinase 70 (26-192) U/L C-Reactive Protein < 0.2 (<=0.9) mg/dL Total Protein 7.4 (6.4-8.2) g/dL Albumin 3.5 (3.4-5.0) g/dL Globulin 3.9 Albumin/Globulin Ratio 0.90 COVID-19 (ESTELA) Positive H (NEGATIVE) 02/05/20 02/05/20 02/05/20 Range/Units 00:45 00:45 00:45 WBC 3.6 L (4.0-10.0) x10^3/uL RBC 3.86 L (4.00-5.50) x10^6/uL Hgb 8.1 L (12.0-16.0) g/dL Hct 27.8 L (33.0-47.0) % MCV 72.0 L (78.0-93.0) fL MCH 21.0 L (26.0-32.0) pg MCHC 29.1 L (32.0-36.0) g/dL RDW Coeff of Jose Miguel 19.0 H (10.0-15.0) % Plt Count 172 (130-400) x10^3/uL Neut % (Auto) 62.1 (50.0-80.0) % Lymph % (Auto) 24.5 L (25.0-50.0) % [place] % (Auto) 11.5 H (2.0-11.0) % Eos % (Auto) 1.4 (0.0-4.0) % Baso % (Auto) 0.5 (0.2-1.2) % PT (9.5-12.3) SEC INR (2.0-3.5) APTT (25.6-32.8) SEC Sodium (136-145) mmol/L Potassium (3.5-5.1) mmol/L Chloride (98-107) mmol/L Carbon Dioxide (21-32) mmol/L Anion Gap (10-20) mmol/L BUN (7-18) mg/dL Creatinine (0.55-1.02) mg/dL Est Cr Clr Drug Dosing mL/min Estimated GFR (MDRD) Glucose (74-106) mg/dL Lactic Acid 1.5 (0.4-2.0) mmol/L Calcium (8.5-10.1) mg/dL Corrected Calcium (8.5-10.1) mg/dL Ferritin 4 L (8-252) ng/mL Total Bilirubin (0.2-1.0) mg/dL AST (15-37) U/L ALT (14-59) U/L Alkaline Phosphatase (46-116) U/L Creatine Kinase (26-192) U/L C-Reactive Protein (<=0.9) mg/dL Total Protein (6.4-8.2) g/dL Albumin (3.4-5.0) g/dL Globulin Albumin/Globulin Ratio COVID-19 (ESTELA) (NEGATIVE) Meds: Medications Discontinued Medications Generic Name Dose Route Start Last Admin Trade Name [place] PRN Reason Stop Dose Admin Lactated Ringer's 1,000 mls @ 999 mls/hr 02/05/20 00:20 02/05/20 00:30 Ringers, Lactated IV 02/05/20 01:20 999 mls/hr ONETIME ONE Administration Ondansetron HCl 4 mg 02/05/20 00:28 02/05/20 00:56 Zofran IV 02/05/20 00:29 4 mg ONETIME ONE Administration - Radiology Interpretation Free Text/Narrative:: Chest x-ray per radiology shows hypoventilation. No pulmonary opacities visualized. - Re-Assessments/Exams Free Text/Narrative Re-Assessment/Exam: 02/05/20 01:16 Appropriate PPE was applied prior to entering the patient room. Covid test positive. Blood culture. CXR no infiltrate effusion or consolidations. NO need for a CT as she has no respiratory distress tachypnea or resp distress. LR 1 liter wide open. Zofran 4mg IVP 02/05/20 02:38 SHe feels much better after the liter of fluids. I discussed at length the discharge plan as she is clinically pretty well off at this time. Discussed the isolation at home and also for her kids that she just got tonight after not having them for a week. She has had symptoms since sunday of the [facility]. She has been to work in multiple places and also with her kids tonight. THe guidelines for them was also discussed and shared with the patient. Follow up with calling ahead to clinic or ed if symptoms worsen. She is comfortable with this plan and their questions are answered. Departure - Departure Time of Disposition: 02:15 Disposition: Home, Self-Care 01 Clinical Impression: COVID-19 - Discharge Information Instructions: COVID-19 Frequently Asked Questions, COVID-19: How to Protect Yourself and Others - CDC, Prevent the Spread of COVID-19 if You Are Sick - CDC Forms: ED Department Discharge Additional Instructions: Home Isolate yourself away from everyone until fever free for 72 hrs without any anti-fever medication I.e Tylenol. Tylenol as needed for fever pain discomfort. May use Ibuprofen although use this sparingly. Drink as much fluids as possible to include gatorade and or powerade to replenish your electrolytes as well. Follow the discharge instruction sheets that were given in the ED from the [facility] for home management of Covid-19. Do not share utensils or food at home. IF you are unable to control your fever, you are unable to breath call the Clinic or ED prior to going to the facility. This must be done to protect others as well. Albuterol MDI inhaler, 2 puffs every 4 hrs as needed for cough or congestion. Sepsis Event Note (ED) - Evaluation Sepsis Screening Result: Possible Sepsis Risk - Focused Exam Vital Signs: Vital Signs Temp Pulse Resp BP Pulse Ox 02/05/20 00:33 97.3 F 106 H 16 126/82 99 - My Orders Last 24 Hours: My Active Orders 02/05/20 00:14 Chest 1V Frontal [CR] Stat 02/05/20 00:18 EKG Documentation Completion [RC] STAT Isolation [COMM] Stat 02/05/20 00:45 CULTURE BLOOD [BC] Stat PROCALCITONIN [REF] Stat - Assessment/Plan Last 24 Hours: My Active Orders 02/05/20 00:14 Chest 1V Frontal [CR] Stat 02/05/20 00:18 EKG Documentation Completion [RC] STAT Isolation [COMM] Stat 02/05/20 00:45 CULTURE BLOOD [BC] Stat PROCALCITONIN [REF] Stat
[2020-02-05 01:14] LABS: PTT,PARTIAL THROMBOPLSTIN TIME 24.1 SEC (25.6-32.8)
[2020-02-05 01:18] LABS: CHLORIDE,CL 104 mmol/L (98-107); SODIUM,NA 141 mmol/L (136-145)
[2020-02-05 01:35] LABS: ANION GAP 16.5 mmol/L (10-20)
[2020-02-05] MEDS ORDERED: Take Home: Albuterol 18 GM Inhaler, 1 Inhaler Pack INH ONE (02:29)
[2020-02-05] MEDS ORDERED: Take Home: Albuterol 18 GM Inhaler, 1 Inhaler Pack INH PRN (02:29)
--- NOTE | 2020-02-05 07:51 | CR ---
[id number] RAD/RAD Chest PA or AP 1V EXAM: SINGLE VIEW CHEST. INDICATION: POSITIVE COVID TEST COMPARISON: CORRELATION IS MADE WITH JANUARY 15, 2018 FINDINGS: The lungs are clear The cardiomediastinal contour is stable IMPRESSION: NO INFILTRATE IDENTIFIED Akash Fuller MD 02/05/20 2199 Thank you for allowing us to participate in the care of your patient.
== END 2020-02-05 04:20 | disposition home or self-care (01) ==
LOC: VM.ED 23:36
DX: U07.1 COVID-19 (principal); F32.9 Major depressive disorder, single episode, unspecified; Z79.899 Other long term (current) drug therapy
CPT/HCPCS: 71045; 80053; 81001; 82550; 82728; 83605; 84145; 85025; 85610; 85730; 86140; 87040; 93005; 93010; 96361; 96374; 99284; 99284-25; A9270-GY; J2405; J7120; U0002

== ENCOUNTER 2020-06-09 10:00 | Emergency (ER) | payer OTHER, MEDICAID ==
[2020-06-09] MEDS ORDERED: Sodium Chloride 0.9% 10 ML Syringe FLUSH PRN (10:39)
--- NOTE | 2020-06-09 10:47 | EDM.PDOC ---
ED HPI GENERAL MEDICAL PROBLEM - General Chief Complaint: Cardiovascular Problem Stated Complaint: BLACKED OUT IN SHOWER;DIZZINESS;CHEST PAIN Time Seen by Provider: 06/09/20 10:30 Source of Information: Reports: Patient - History of Present Illness INITIAL COMMENTS - FREE TEXT/NARRATIVE: Aracelis is a 39 y/o female who comes to the ER by POV this AM after she passed out. She reports that she woke up about 0800 and looked at her phone and she was then trying to get out of bed, but then about 0930 woke up on the floor at 0930. Also complaining now that her left arm is numb and tingly. She reports feeling fine other than since 06/01 she has been weak and dizzy. She thought she was just feeling stressed with the holidays, but the feeling was not getting any better. She went to the clinic on Sunday and found out that she was anemic and had a B12 deficiency. Her hgb had dropped from about 10 in August to around 7. She was referred to a Oncology Technician that she scheduled to see on this coming Sunday. 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: Psychiatric History: Reports: Depression Hematologic History: Reports: Anemia, B12 Deficiency - Infectious Disease History Infectious Disease History: Reports: Novel Coronavirus - Past Surgical History GI Surgical History: Reports: Appendectomy, Bariatric Procedure, Cholecystectomy Female Surgical History: Reports: Section, Hysterectomy Social & Family History - Caffeine Use Caffeine Use: Reports: Coffee ED ROS GENERAL - Review of Systems Review Of Systems: See Below Constitutional: Reports: Weakness, Fatigue HEENT: Reports: No Symptoms Respiratory: Reports: No Symptoms Cardiovascular: Reports: No Symptoms Endocrine: Reports: No Symptoms GI/Abdominal: Reports: No Symptoms : Reports: No Symptoms Musculoskeletal: Reports: No Symptoms Skin: Reports: No Symptoms Neurological: Reports: Dizziness, Tingling (left arm) Psychiatric: Reports: No Symptoms Hematologic/Lymphatic: Reports: Anemia Immunologic: Reports: No Symptoms ED EXAM, GENERAL - Physical Exam Exam: See Below General Appearance: Alert, WD/WN, No Apparent Distress (adult female.) Eye Exam: Bilateral Eye: PERRL Ears: Normal External Exam, Normal Canal, Hearing Grossly Normal, Normal TMs Nose: Normal Inspection, Normal Mucosa Throat/Mouth: Normal Inspection, Normal Lips, Normal Teeth, Normal Voice Head: Atraumatic, Normocephalic Neck: Supple, Non-Tender Respiratory/Chest: No Respiratory Distress, Lungs Clear, Normal Breath Sounds Cardiovascular: Regular Rate, Rhythm GI/Abdominal: Normal Bowel Sounds, Soft, Non-Tender (Female) Exam: Deferred Rectal (Female) Exam: Deferred Back Exam: Normal Inspection Extremities: Normal Inspection, Normal Range of Motion, Non-Tender, No Pedal Edema, Normal Capillary Refill Neurological: Alert, Oriented, CN II-XII Intact, Normal Cognition, Normal Gait, No Motor/Sensory Deficits Psychiatric: Normal Affect, Normal Mood Skin Exam: Warm, Dry, Intact, No Rash, Pallor Lymphatic: No Adenopathy #1 Interpretation EKG Date: 06/09/20 Time: 10:02 Rhythm: NSR Rate (Beats/Min): 93 [place]: Normal P-Wave: Present QRS: Normal ST-T: Normal QT: Normal Comparison: NA - No Prior EKG Course - Vital Signs Text/Narrative:: 1030 The patient was seen by the ASSISTANT GROCERY. Labs, EKG, and CXR ordered. She was given a liter of LR. CT Head WO also ordered since she had possible LOC x 1 hour+ as described in the HPI. 1230 Still somewhat dizzy after 1 liter of IV fluids. Will given second liter of LR. EKG neg. CXR=neg. Labs reviewed. CMP neg, CBC Hgb=8.1, Hct=28.3. Ferritin=5, UA SG=>=1.030. UDS=neg, ETOH=neg. CT pending yet. 1250 CT Head neg. Doing better. Anxious to go home. Will finish IV fluids prior to discharge. Patient was given written discharge instructions and left the ER in stable. Condition. Able to ambulate out of ER without difficulty. Last Recorded V/S: Last Vital Signs Temp 36.7 C 06/09/20 12:18 Pulse 85 06/09/20 12:29 Resp 14 06/09/20 12:29 BP 101/67 06/09/20 12:29 Pulse Ox 98 06/09/20 12:29 - Orders/Labs/Meds Orders: Active Orders 24 hr Category Date Time Status EKG Documentation Completion [RC] STAT Care 06/09/20 10:39 Active Lactated Ringers [Ringers, Lactated] 1,000 ml Med 06/09/20 12:25 Active IV ONETIME Sodium Chloride 0.9% [Saline Flush] Med 06/09/20 10:39 Active 10 ml FLUSH ASDIRECTED PRN Saline Lock Insert [OM.PC] Stat Oth 06/09/20 10:39 Ordered Medication Orders Lactated Ringer's (Ringers, Lactated) 1,000 mls @ 999 mls/hr IV ONETIME ONE Stop: 06/09/20 13:25 Last Admin: 06/09/20 12:28 Dose: 999 mls/hr Documented by: MALLY Sodium Chloride (Saline Flush) 10 ml FLUSH ASDIRECTED PRN PRN Reason: Keep Vein Open Labs: Laboratory Tests 06/09/20 06/09/20 06/09/20 Range/Units 10:17 10:17 10:17 WBC 6.0 (4.0-10.0) x10^3/uL RBC 3.88 L (4.00-5.50) x10^6/uL Hgb 8.1 L (12.0-16.0) g/dL Hct 28.3 L (33.0-47.0) % MCV 72.9 L (78.0-93.0) fL MCH 20.9 L (26.0-32.0) pg MCHC 28.6 L (32.0-36.0) g/dL RDW Coeff of Jose Miguel 19.2 H (10.0-15.0) % Plt Count 189 (130-400) x10^3/uL Neut % (Auto) 58.2 (50.0-80.0) % Lymph % (Auto) 34.0 (25.0-50.0) % [place] % (Auto) 6.2 (2.0-11.0) % Eos % (Auto) 1.3 (0.0-4.0) % Baso % (Auto) 0.3 (0.2-1.2) % PT 9.3 L (9.5-12.3) SEC INR 0.8 L (2.0-3.5) Sodium 144 (136-145) mmol/L Potassium 4.3 (3.5-5.1) mmol/L Chloride 108 H (98-107) mmol/L Carbon Dioxide 24 (21-32) mmol/L Anion Gap 16.3 (10-20) mmol/L BUN 9 (7-18) mg/dL Creatinine 0.7 (0.55-1.02) mg/dL Est Cr Clr Drug Dosing TNP Estimated GFR (MDRD) > 60 Glucose 81 (74-106) mg/dL Calcium 8.4 L (8.5-10.1) mg/dL Corrected Calcium 8.88 (8.5-10.1) mg/dL Magnesium 2.2 (1.8-2.4) mg/dL Ferritin (8-252) ng/mL Total Bilirubin 0.2 (0.2-1.0) mg/dL AST 25 (15-37) U/L ALT 29 (14-59) U/L Alkaline Phosphatase 105 (46-116) U/L Troponin I < 0.017 (<=0.056) ng/mL Total Protein 7.5 (6.4-8.2) g/dL Albumin 3.4 (3.4-5.0) g/dL Globulin 4.1 Albumin/Globulin Ratio 0.83 TSH, Ultra Sensitive 1.696 (0.358-3.74) uIU/mL Urine Color (YELLOW) Urine Appearance (CLEAR) Urine pH (5.0-8.0) Ur Specific [place] Urine Protein (NEGATIVE) mg/dL Urine Glucose (UA) (NEGATIVE) mg/dL Urine Ketones (NEGATIVE) mg/dL Urine Occult Blood (NEGATIVE) Urine Nitrite (NEGATIVE) Urine Bilirubin (NEGATIVE) Urine Urobilinogen (0.2) EU/dL Ur Leukocyte Esterase (NEGATIVE) Urine Opiates Screen (NEGATIVE) Ur Buprenorphine Scrn (NEGATIVE) Ur Oxycodone Screen (NEGATIVE) Ur EDDP (Meth Metab) (NEGATIVE) Urine Methadone Screen (NEGATIVE) Ur Barbituates Screen (NEGATIVE) Ur Tricyclics Screen (NEGATIVE) Ur Phencyclidine Scrn (NEGATIVE) Ur Amphetamines Screen (NEGATIVE) U Methamphetamines Scrn (NEGATIVE) Urine MDMA Screen (NEGATIVE) U Benzodiazepines Scrn (NEGATIVE) Urine Cocaine Screen (NEGATIVE) U Marijuana (THC) Screen (NEGATIVE) Ethyl Alcohol < 3 (0-3) mg/dL 06/09/20 06/09/20 06/09/20 Range/Units 10:17 11:02 11:02 WBC (4.0-10.0) x10^3/uL RBC (4.00-5.50) x10^6/uL Hgb (12.0-16.0) g/dL Hct (33.0-47.0) % MCV (78.0-93.0) fL MCH (26.0-32.0) pg MCHC (32.0-36.0) g/dL RDW Coeff of Jose Miguel (10.0-15.0) % Plt Count (130-400) x10^3/uL Neut % (Auto) (50.0-80.0) % Lymph % (Auto) (25.0-50.0) % [place] % (Auto) (2.0-11.0) % Eos % (Auto) (0.0-4.0) % Baso % (Auto) (0.2-1.2) % PT (9.5-12.3) SEC INR (2.0-3.5) Sodium (136-145) mmol/L Potassium (3.5-5.1) mmol/L Chloride (98-107) mmol/L Carbon Dioxide (21-32) mmol/L Anion Gap (10-20) mmol/L BUN (7-18) mg/dL Creatinine (0.55-1.02) mg/dL Est Cr Clr Drug Dosing Estimated GFR (MDRD) Glucose (74-106) mg/dL Calcium (8.5-10.1) mg/dL Corrected Calcium (8.5-10.1) mg/dL Magnesium (1.8-2.4) mg/dL Ferritin 5 L (8-252) ng/mL Total Bilirubin (0.2-1.0) mg/dL AST (15-37) U/L ALT (14-59) U/L Alkaline Phosphatase (46-116) U/L Troponin I (<=0.056) ng/mL Total Protein (6.4-8.2) g/dL Albumin (3.4-5.0) g/dL Globulin Albumin/Globulin Ratio TSH, Ultra Sensitive (0.358-3.74) uIU/mL Urine Color Dark yellow H (YELLOW) Urine Appearance Slightly cloudy H (CLEAR) Urine pH 5.5 (5.0-8.0) Ur Specific [place] >=1.030 Urine Protein Negative (NEGATIVE) mg/dL Urine Glucose (UA) Negative (NEGATIVE) mg/dL Urine Ketones Negative (NEGATIVE) mg/dL Urine Occult Blood Negative (NEGATIVE) Urine Nitrite Negative (NEGATIVE) Urine Bilirubin Small H (NEGATIVE) Urine Urobilinogen 1.0 (0.2) EU/dL Ur Leukocyte Esterase Negative (NEGATIVE) Urine Opiates Screen Negative (NEGATIVE) Ur Buprenorphine Scrn Negative (NEGATIVE) Ur Oxycodone Screen Negative (NEGATIVE) Ur EDDP (Meth Metab) Negative (NEGATIVE) Urine Methadone Screen Negative (NEGATIVE) Ur Barbituates Screen Negative (NEGATIVE) Ur Tricyclics Screen Negative (NEGATIVE) Ur Phencyclidine Scrn Negative (NEGATIVE) Ur Amphetamines Screen Negative (NEGATIVE) U Methamphetamines Scrn Negative (NEGATIVE) Urine MDMA Screen Negative (NEGATIVE) U Benzodiazepines Scrn Negative (NEGATIVE) Urine Cocaine Screen Negative (NEGATIVE) U Marijuana (THC) Screen Negative (NEGATIVE) Ethyl Alcohol (0-3) mg/dL Meds: Medications Generic Name Dose Route Start Last Admin Trade Name Freq PRN Reason Stop Dose Admin Lactated Ringer's 1,000 mls @ 999 mls/hr 06/09/20 12:25 06/09/20 12:28 Ringers, Lactated IV 06/09/20 13:25 999 mls/hr ONETIME ONE Administration Sodium Chloride 10 ml 06/09/20 10:39 Saline Flush FLUSH ASDIRECTED PRN Keep Vein Open Discontinued Medications Generic Name Dose Route Start Last Admin Trade Name Freq PRN Reason Stop Dose Admin Lactated Ringer's 1,000 mls @ 999 mls/hr 06/09/20 10:40 06/09/20 11:01 Ringers, Lactated IV 06/09/20 11:40 999 mls/hr ONETIME ONE Administration - Radiology Interpretation Free Text/Narrative:: CT Head WO=neg XR-Chest 1V=neg Departure - Departure Time of Disposition: 12:57 Disposition: Home, Self-Care 01 Condition: Good Clinical Impression: Mild dehydration Syncopal episodes Qualifiers: Syncope type: unspecified Qualified Code(s): R55 - Syncope and collapse Instructions: Rehydration, Adult, Syncope Referrals: Mel Phipps PA-C [Primary Care Provider] - Forms: ED Department Discharge Sepsis Event Note (ED) - Evaluation Sepsis Screening Result: No Definite Risk - Focused Exam Vital Signs: Vital Signs Temp Pulse Resp BP Pulse Ox 06/09/20 12:29 85 14 101/67 98 06/09/20 12:18 36.7 C 71 15 118/78 98 06/09/20 10:00 36.7 C 95 12 112/65 97 - My Orders Last 24 Hours: My Active Orders 06/09/20 10:39 EKG Documentation Completion [RC] STAT Sodium Chloride 0.9% [Saline Flush] 10 ml FLUSH ASDIRECTED PRN Saline Lock Insert [OM.PC] Stat 06/09/20 12:25 Lactated Ringers [Ringers, Lactated] 1,000 ml IV ONETIME - Assessment/Plan Last 24 Hours: My Active Orders 06/09/20 10:39 EKG Documentation Completion [RC] STAT Sodium Chloride 0.9% [Saline Flush] 10 ml FLUSH ASDIRECTED PRN Saline Lock Insert [OM.PC] Stat 06/09/20 12:25 Lactated Ringers [Ringers, Lactated] 1,000 ml IV ONETIME Assessment:: 1)Syncopal Episode 2)Mild Dehydration Plan: -Stay well hydrated -Rest as much as possible today -Keep the Hematology appointment that was set up for your in [place] on June 14. -Return to the ER with any other concerns or follow up with your PCP at the [facility]
[2020-06-09] MEDS: Lactated Ringers 1,000 ML IV ONE ×2 (11:01→12:28)
[2020-06-09 11:09] LABS: BUPRENORPHINE,URINE NEGATIVE (NEGATIVE); MARIJUANA,URINE NEGATIVE (NEGATIVE); METHYLENEDIOXYMETHAMP,UR NEGATIVE (NEGATIVE); PHENCYCLIDINE,URINE NEGATIVE (NEGATIVE)
[2020-06-09 11:10] LABS: CHLORIDE,CL 108 mmol/L (98-107); SODIUM,NA 144 mmol/L (136-145)
[2020-06-09 11:11] LABS: ANION GAP 16.3 mmol/L (10-20)
--- NOTE | 2020-06-09 11:18 | CR ---
[id number] RAD/RAD Chest PA or AP 1V EXAM: RAD Chest PA or AP 1V INDICATION: SYNCOPE. COMPARISON: February 05, 2020. DISCUSSION: Cardiomediastinal silhouette is normal in size and contour. Lungs are clear. No pleural effusion or pneumothorax. IMPRESSION: Negative examination of the chest. Mata Nogueira MD 06/09/20 1117 Thank you for allowing us to participate in the care of your patient.
--- NOTE | 2020-06-09 12:42 | CT ---
[id number] CT/CT Head WO IV EXAM: CT Head WO IV CLINICAL DATA: SYNCOPAL, POSSIBLE LOC X1 HOUR, LEFT ARM NUMB. COMPARISON STUDY: None FINDINGS: No intracranial hemorrhage, extra-axial fluid collection, mass, or acute ischemia. No hydrocephalus. Calvarium intact. Mild ethmoid sinusitis. Mastoid air cells are clear. IMPRESSION: Normal examination of the brain. Mata Nogueira MD 06/09/20 0952 Thank you for allowing us to participate in the care of your patient.
== END 2020-06-09 13:23 | disposition home or self-care (01) ==
LOC: VM.ED 10:00
DX: E86.0 Dehydration (principal)
CPT/HCPCS: 70450; 71045; 80053; 80305-QW; 80307; 81003; 82728; 83735; 84443; 84484; 85025; 85610; 93005; 99284-25; J7120

== ENCOUNTER 2020-11-13 11:28 | Emergency (ER) | payer OTHER, MEDICAID ==
[2020-11-13] MEDS: Lactated Ringers 1,000 ML IV ONE (11:50)
--- NOTE | 2020-11-13 11:52 | EDM.PDOC ---
ED HPI GENERAL MEDICAL PROBLEM - General Stated Complaint: dizziness Time Seen by Provider: 11/13/20 11:50 Source of Information: Reports: Patient History Limitations: Reports: No Limitations - History of Present Illness INITIAL COMMENTS - FREE TEXT/NARRATIVE: Patient comes emergency department today from home with complaints of the room spinning when she is sitting still or standing up. This patient went to bed last night was asymptomatic. When she got up this morning when she was laying in bed it felt like the room was constantly spinning. When she tries to get up it gets worse. She has no double vision. No blurry vision. No paresthesias of her upper or lower extremities. No change in the functionality of her upper or lower extremity. No headache visual acuity changes. No nausea no vomiting. No recent falls head trauma. No fever no chills. She has had no chest pain shortness of breath or difficulty breathing. No cough or congestion. No palpitations. No syncope. No abdominal pain nausea or vomiting. No hematuria dysuria or urinary frequency. No black or tarry stools or diarrhea. She has been eating and drinking appropriately. She denies any ear pain crackling pressure. 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: Reports: Polycystic Ovaries, Psychiatric History: Reports: Anxiety, Depression, Panic Attack Hematologic History: Reports: Anemia, B12 Deficiency, Iron Deficiency - Infectious Disease History Infectious Disease History: Reports: Novel Coronavirus - Past Surgical History GI Surgical History: Reports: Appendectomy, Bariatric Procedure, Cholecystectomy, Other (See Below) Other GI Surgeries/Procedures: panniculectomy Female Surgical History: Reports: Section, Hysterectomy Social & Family History - Caffeine Use Caffeine Use: Reports: Coffee ED ROS GENERAL - Review of Systems Review Of Systems: Comprehensive ROS is negative, except as noted in HPI. ED EXAM, DIZZINESS - Physical Exam Exam: See Below Exam Limited By: No Limitations General Appearance: Alert, WD/WN, No Apparent Distress Nystagmus: worsens with head to R, reproducible, reversible Ears: Normal External Exam, Normal Canal, Hearing Grossly Normal, Normal TMs Nose: Normal Inspection, Normal Mucosa, No Blood Throat/Mouth: Normal Inspection, Normal Lips, Normal Oropharynx, Normal Voice Head Exam: Atraumatic, Normocephalic Vertigo: worsens with head to R, reproducible, reversible Neck: Normal Inspection, Supple, Non-Tender, Full Range of Motion. No: Carotid Bruit Respiratory/Chest: No Respiratory Distress, Lungs Clear, Normal Breath Sounds, No Accessory Muscle Use, Chest Non-Tender Cardiovascular: Normal Peripheral Pulses GI/Abdominal: Normal Bowel Sounds, Soft, Non-Tender Neurological: Alert, Normal Mood/Affect, Normal Dorsiflexion, CN II-XII Intact, Normal Plantar Flexion, Normal Gait, Normal Reflexes, No Motor/Sensory Deficits, Oriented x 3 DTR: 2+: Bicep (R), Bicep (L), Patella (R), Patella (L), Achilles (R), Achilles (L) Back Exam: Normal Inspection, Full Range of Motion Extremities: Normal Inspection, Normal Range of Motion, No Pedal Edema, Normal Capillary Refill Psychiatric: Normal Affect, Normal Mood Skin Exam: Warm, Dry, Intact, Normal Color, No Rash Course - Vital Signs Last Recorded V/S: Last Vital Signs Temp 97.9 F 11/13/20 11:30 Pulse 82 11/13/20 11:30 Resp 16 11/13/20 11:30 BP 123/71 11/13/20 11:30 Pulse Ox 97 11/13/20 11:30 - Orders/Labs/Meds Orders: Active Orders 24 hr Category Date Time Status Lactated Ringers [Ringers, Lactated] 1,000 ml Med 11/13/20 11:53 Ordered IV ONETIME Meclizine [Antivert] Med 11/13/20 12:34 Once 25 mg PO ONETIME ONE Sodium Chloride 0.9% [Saline Flush] Med 11/13/20 11:53 Ordered 10 ml FLUSH ASDIRECTED PRN Peripheral IV Insertion Adult [OM.PC] Stat Oth 11/13/20 11:53 Ordered Medication Orders Lactated Ringer's (Ringers, Lactated) 1,000 mls @ 999 mls/hr IV ONETIME ONE Stop: 11/13/20 12:53 Last Admin: 11/13/20 11:50 Dose: 999 mls/hr Documented by: Sodium Chloride (Sodium Chloride 0.9% 10 Ml Syringe) 10 ml FLUSH ASDIRECTED PRN PRN Reason: Keep Vein Open Labs: Laboratory Tests 11/13/20 11/13/20 11/13/20 Range/Units 11:40 11:48 11:48 WBC 7.2 (4.0-10.0) x10^3/uL RBC 4.06 (4.00-5.50) x10^6/uL Hgb 13.2 D (12.0-16.0) g/dL Hct 38.4 (33.0-47.0) % MCV 94.6 H D (78.0-93.0) fL MCH 32.5 H (26.0-32.0) pg MCHC 34.4 (32.0-36.0) g/dL RDW Coeff of Jose Miguel 13.6 (10.0-15.0) % Plt Count 139 (130-400) x10^3/uL Neut % (Auto) 65.3 (50.0-80.0) % Lymph % (Auto) 28.0 (25.0-50.0) % [place] % (Auto) 5.3 (2.0-11.0) % Eos % (Auto) 1.1 (0.0-4.0) % Baso % (Auto) 0.3 (0.2-1.2) % Sodium 143 (136-145) mmol/L Potassium 4.0 (3.5-5.1) mmol/L Chloride 106 (98-107) mmol/L Carbon Dioxide 25 (21-32) mmol/L Anion Gap 16.0 H (5-15) mmol/L BUN 11 (7-18) mg/dL Creatinine 0.6 (0.55-1.02) mg/dL Est Cr Clr Drug Dosing TNP Estimated GFR (MDRD) > 60 Glucose 84 (70-99) mg/dL POC Glucose 81 (70-99) mg/dL Calcium 8.9 (8.5-10.1) mg/dL Corrected Calcium 9.1 (8.5-10.1) mg/dL Total Bilirubin 0.6 (0.2-1.0) mg/dL AST 28 (15-37) U/L ALT 22 (14-59) U/L Alkaline Phosphatase 108 (46-116) U/L Total Protein 7.4 (6.4-8.2) g/dL Albumin 3.7 (3.4-5.0) g/dL Globulin 3.7 Albumin/Globulin Ratio 1.00 Meds: Medications Generic Name Dose Route Start Last Admin Trade Name Freq PRN Reason Stop Dose Admin Lactated Ringer's 1,000 mls @ 999 mls/hr 11/13/20 11:53 11/13/20 11:50 Ringers, Lactated IV 11/13/20 12:53 999 mls/hr ONETIME ONE Administration Sodium Chloride 10 ml 11/13/20 11:53 Sodium Chloride 0.9% 10 Ml Syringe FLUSH ASDIRECTED PRN Keep Vein Open - Re-Assessments/Exams Free Text/Narrative Re-Assessment/Exam: 11/13/20 12:44 IV was established labs were drawn. 1 L LR wide open. The patient has a positive Ruby-Hallpike to the right ear. We initially attempted the Estrella maneuver I isolatory to the right ear without improvement of the symptoms. About 10 minutes later I repeated the Estrella maneuver isolatory to the left ear with complete resolution of the patient's symptoms. Patient's laboratory evaluation is unremarkable. I discussed the pathophysiology of BPPV to the patient. I discussed how she is able to do the Estrella maneuver at home. We will give her some as needed meclizine as well. Make sure that she is well-hydrated as well. If she continues to have symptoms she should see physical therapy for further evaluation and management. Discharge directions as below are explained to the patient she was comfortable with this instructions and her questions were answered. Departure - Departure Time of Disposition: 12:34 Disposition: Home, Self-Care 01 Clinical Impression: BPPV (benign paroxysmal positional vertigo) Qualifiers: Laterality: left Qualified Code(s): H81.12 - Benign paroxysmal vertigo, left ear - Discharge Information Instructions: Vertigo, [id number], How to Perform the Estrella Maneuver, Benign Positional Vertigo Additional Instructions: Home rest today. Make sure and drink plenty of fluids the next few days this helps with the fluid in your ear as well. Try most of the day to sit up with your head in the midline position looking forward. When you do go to stand up make sure your moves and position changes are slow so that you don't fall if you get vertigo again. Meclizine 1 tablet three times a day as needed for vertigo. You can attempt the same Eply maneuver at home if the symptoms redevelop. RX sent to [facility]. If continued symptoms self referral to physical therapy and they can work more with you. This is the mainstay of treatment for vertigo. Return to the ED if new or worsening symptoms. Follow up with PCP in the next week if any problems or concerns. Sepsis Event Note (ED) - Focused Exam Vital Signs: Vital Signs Temp Pulse Resp BP Pulse Ox 11/13/20 11:30 97.9 F 82 16 123/71 97 - My Orders Last 24 Hours: My Active Orders 11/13/20 11:53 Lactated Ringers [Ringers, Lactated] 1,000 ml IV ONETIME Sodium Chloride 0.9% [Saline Flush] 10 ml FLUSH ASDIRECTED PRN Peripheral IV Insertion Adult [OM.PC] Stat 11/13/20 12:34 Meclizine [Antivert] 25 mg PO ONETIME ONE - Assessment/Plan Last 24 Hours: My Active Orders 11/13/20 11:53 Lactated Ringers [Ringers, Lactated] 1,000 ml IV ONETIME Sodium Chloride 0.9% [Saline Flush] 10 ml FLUSH ASDIRECTED PRN Peripheral IV Insertion Adult [OM.PC] Stat 11/13/20 12:34 Meclizine [Antivert] 25 mg PO ONETIME ONE
[2020-11-13] MEDS ORDERED: Sodium Chloride 0.9% 10 ML Syringe FLUSH PRN (11:53)
[2020-11-13 12:14] LABS: CHLORIDE,CL 106 mmol/L (98-107); SODIUM,NA 143 mmol/L (136-145)
[2020-11-13] MEDS: Meclizine 25 MG Tab PO ONE (12:42)
== END 2020-11-13 13:00 | disposition home or self-care (01) ==
LOC: VM.ED 11:28
DX: H81.12 Benign paroxysmal vertigo, left ear (principal); Z79.899 Other long term (current) drug therapy
CPT/HCPCS: 80053; 82947; 85025; 99284; A9270-GY; J7120

== ENCOUNTER 2020-12-10 11:38 | Emergency (ER) | payer OTHER, MEDICAID ==
[2020-12-10] MEDS ORDERED: Sodium Chloride 0.9% 10 ML Syringe FLUSH PRN (12:10)
[2020-12-10] MEDS: Ondansetron 4 MG/2 ML SDV IVPUSH ONE (12:31)
[2020-12-10] MEDS: Sodium Chloride 0.9% 1,000 ML IV ONE (12:31)
--- NOTE | 2020-12-10 12:43 | EDM.PDOC ---
ED HPI GENERAL MEDICAL PROBLEM - General Chief Complaint: General Stated Complaint: LIGHTHEADED Time Seen by Provider: 12/10/20 12:00 Source of Information: Reports: Patient History Limitations: Reports: No Limitations - History of Present Illness INITIAL COMMENTS - FREE TEXT/NARRATIVE: Patient presents to the ED for feeling lightheaded. She states she works at the [employer], has been busy lately and been in the 100 degree heat. She had an episode two days ago at work with feeling light headed and did have a syncopal episode. She did not get hurt, went home from work and rested Was fine until this morning when she had three witnessed syncopal episodes per the boyfriend. No injury in any of these episodes. States she struggles with this ad anemia due to her gastric bypass surgery. Has been getting her B12 and iron infusions. no black or bloody stools. No recent chiropractic manipulation. no tick or bug bites. No recent illness. Did go drinking alcohol yesterday for her birthday. Denies any supplement or drug use. She has some brief left arm tingling earlier today but resolved. Has had vertigo in the past, denies this being that. Able to ambulate currently on bactrim for an uti Onset: Unknown/Unsure Duration: Recurring Severity: Moderate - Related Data Allergies Allergy/AdvReac Type Severity Reaction Status Date / Time No Known Allergies Allergy Verified 12/10/20 14:47 Home Meds: Home Meds Sertraline [Zoloft] 25 mg PO DAILY 06/28/20 [History] Sertraline [Zoloft] 50 mg PO DAILY 06/28/20 [History] Estrogens, Conjugated [Premarin] 0.625 mg PO DAILY 06/29/20 [History] Meclizine [Antivert] 25 mg PO TID PRN #12 tab 11/13/20 [Rx] Past Medical History Cardiovascular History: Reports: High Cholesterol Respiratory History: Reports: Sleep Apnea Gastrointestinal History: Reports: [employer] CEO History: Reports: Polycystic Ovaries, Psychiatric History: Reports: Anxiety, Depression, Panic Attack Hematologic History: Reports: Anemia, B12 Deficiency, Iron Deficiency - Infectious Disease History Infectious Disease History: Reports: Novel Coronavirus - Past Surgical History GI Surgical History: Reports: Appendectomy, Bariatric Procedure, Cholecystectomy, Other (See Below) Other GI Surgeries/Procedures: panniculectomy Female Surgical History: Reports: Section, Hysterectomy Social & Family History - Tobacco Core Measures Tobacco Use/Smoking Within Last 30 Days: Yes - Caffeine Use Caffeine Use: Reports: Coffee - Alcohol Use Alcohol Use History: Yes Alcohol Use in Last Twelve Months: Yes - Recreational Drug Use Recreational Drug Use: No Drug Use in Last 12 Months: No ED ROS GENERAL - Review of Systems Review Of Systems: See Below Constitutional: Reports: No Symptoms HEENT: Reports: No Symptoms. Denies: Eye Discharge, Eye Pain, Hearing Loss, Rhinitis, Throat Swelling Respiratory: Reports: No Symptoms. Denies: Shortness of Breath, Cough Cardiovascular: Reports: Lightheadedness. Denies: Chest Pain, Blood Pressure Problem, Claudication, Dyspnea on Exertion Endocrine: Reports: Fatigue GI/Abdominal: Reports: Nausea. Denies: Abdominal Pain, Anorexia, Black Stool, Bloody Stool, Hematemesis, Hematochezia : Reports: Urgency Musculoskeletal: Reports: No Symptoms Skin: Reports: No Symptoms Neurological: Reports: Tingling (left arm briefly) Psychiatric: Reports: No Symptoms Hematologic/Lymphatic: Reports: No Symptoms Immunologic: Reports: No Symptoms ED EXAM, GENERAL - Physical Exam Exam: See Below Exam Limited By: No Limitations General Appearance: Alert, No Apparent Distress Eye Exam: Bilateral Eye: EOMI, Nystagmus (very minimal, lateral ), PERRL, Other (sits with eyes closed) Ears: Normal External Exam, Normal TMs Nose: Normal Inspection, Normal Mucosa, No Blood Throat/Mouth: Normal Inspection, Normal Lips, Normal Teeth, Other (dry) Head: Atraumatic, Normocephalic Neck: Normal Inspection, Supple, Non-Tender, Full Range of Motion Respiratory/Chest: No Respiratory Distress, Lungs Clear, Normal Breath Sounds, No Accessory Muscle Use, Chest Non-Tender Cardiovascular: Normal Peripheral Pulses, Regular Rate, Rhythm, No Edema, No Murmur GI/Abdominal: Normal Bowel Sounds, Soft, Non-Tender Extremities: Normal Inspection, Normal Range of Motion, No Pedal Edema Neurological: Alert, Oriented, CN II-XII Intact, Normal Cognition, Normal Gait, No Motor/Sensory Deficits, Other (neg pronator drift, normal heel to yu, normal strength in upper and lower extremities, normal speech, normal finger to nose with eyes closed normal rapidly alternating movements) Course - Orders/Labs/Meds Orders: Active Orders 24 hr Category Date Time Status Sodium Chloride 0.9% [Saline Flush] Med 12/10/20 12:10 Active 10 ml FLUSH ASDIRECTED PRN Peripheral IV Insertion Adult [OM.PC] Routine Oth 12/10/20 12:10 Ordered Medication Orders Sodium Chloride (Sodium Chloride 0.9% 10 Ml Syringe) 10 ml FLUSH ASDIRECTED PRN PRN Reason: Keep Vein Open Labs: Laboratory Tests 12/10/20 12/10/20 12/10/20 Range/Units 12:30 12:30 13:45 WBC 6.8 (4.0-10.0) x10^3/uL RBC 4.28 (4.00-5.50) x10^6/uL Hgb 13.9 (12.0-16.0) g/dL Hct 41.2 (33.0-47.0) % MCV 96.3 H (78.0-93.0) fL MCH 32.5 H (26.0-32.0) pg MCHC 33.7 (32.0-36.0) g/dL RDW Coeff of Jose Miguel 13.2 (10.0-15.0) % Plt Count 147 (130-400) x10^3/uL Neut % (Auto) 60.9 (50.0-80.0) % Lymph % (Auto) 30.4 (25.0-50.0) % [place] % (Auto) 6.8 (2.0-11.0) % Eos % (Auto) 1.6 (0.0-4.0) % Baso % (Auto) 0.3 (0.2-1.2) % Sodium 141 (136-145) mmol/L Potassium 4.6 (3.5-5.1) mmol/L Chloride 105 (98-107) mmol/L Carbon Dioxide 24 (21-32) mmol/L Anion Gap 16.6 H (5-15) mmol/L BUN 9 (7-18) mg/dL Creatinine 0.7 (0.55-1.02) mg/dL Est Cr Clr Drug Dosing TNP Estimated GFR (MDRD) > 60 Glucose 83 (70-99) mg/dL Calcium 8.7 (8.5-10.1) mg/dL Corrected Calcium 8.8 (8.5-10.1) mg/dL Magnesium 2.1 (1.8-2.4) mg/dL Total Bilirubin 0.3 (0.2-1.0) mg/dL AST 34 (15-37) U/L ALT 32 (14-59) U/L Alkaline Phosphatase 101 (46-116) U/L Creatine Kinase 64 (26-192) U/L Total Protein 7.8 (6.4-8.2) g/dL Albumin 3.9 (3.4-5.0) g/dL Globulin 3.9 Albumin/Globulin Ratio 1.00 Urine Color Yellow (YELLOW) Urine Appearance Clear (CLEAR) Urine pH 6.0 (5.0-8.0) Ur Specific [place] 1.025 Urine Protein Negative (NEGATIVE) mg/dL Urine Glucose (UA) Negative (NEGATIVE) mg/dL Urine Ketones Negative (NEGATIVE) mg/dL Urine Occult Blood Negative (NEGATIVE) Urine Nitrite Negative (NEGATIVE) Urine Bilirubin Negative (NEGATIVE) Urine Urobilinogen 0.2 (0.2) EU/dL Ur Leukocyte Esterase Negative (NEGATIVE) Urine RBC 0-5 (NOT SEEN) /HPF Urine WBC 0-5 (NOT SEEN) /HPF Ur Squamous Epith Cells Few H (NOT SEEN) /HPF Urine Bacteria Occasional H (NOT SEEN) /HPF Urine Mucus Occasional H (NOT SEEN) /LPF Ethyl Alcohol < 3 (0-3) mg/dL Meds: Medications Generic Name Dose Route Start Last Admin Trade Name [place] PRN Reason Stop Dose Admin Sodium Chloride 10 ml 12/10/20 12:10 Sodium Chloride 0.9% 10 Ml Syringe FLUSH ASDIRECTED PRN Keep Vein Open Discontinued Medications Generic Name Dose Route Start Last Admin Trade Name Freq PRN Reason Stop Dose Admin Sodium Chloride 1,000 mls @ 999 mls/hr 12/10/20 12:15 12/10/20 12:31 Normal Saline IV 12/10/20 13:15 999 mls/hr ONETIME ONE Administration Meclizine HCl 25 mg 12/10/20 13:46 12/10/20 14:14 Meclizine 25 Mg Tab PO 12/10/20 13:47 25 mg ONETIME ONE Administration Ondansetron HCl 4 mg 12/10/20 12:15 12/10/20 12:31 Ondansetron 4 Mg/2 Ml Sdv IVPUSH 12/10/20 12:16 4 mg ONETIME ONE Administration - Radiology Interpretation Free Text/Narrative:: CT head without contrast normal per radiology result at 16:05 - Re-Assessments/Exams Free Text/Narrative Re-Assessment/Exam: 12/10/20 12:49 will give her one liter of fluid, zofran and check labs and CT. History of syncope 12/10/20 16:10 normal labs, follow up with PCP, has meclizine at home, briefly discussed holter monitor thru PCP Departure - Departure Time of Disposition: 16:09 Disposition: Home, Self-Care 01 Clinical Impression: Mild dehydration Syncopal episodes Qualifiers: Syncope type: unspecified Qualified Code(s): R55 - Syncope and collapse - Discharge Information *PRESCRIPTION DRUG MONITORING PROGRAM REVIEWED*: Not Applicable *COPY OF PRESCRIPTION DRUG MONITORING REPORT IN PATIENT BERE: Not Applicable Instructions: Near-Syncope, [id number], Syncope, [id number], Dehydration, Adult Referrals: Mel Phipps PA-C [Primary Care Provider] - Forms: ED Department Discharge Additional Instructions: Make an appointment with PCP for follow up , hydrate well, an use the meclizine that you have at home for the dizziness. - My Orders Last 24 Hours: My Active Orders 12/10/20 12:10 Sodium Chloride 0.9% [Saline Flush] 10 ml FLUSH ASDIRECTED PRN Peripheral IV Insertion Adult [OM.PC] Routine - Assessment/Plan Last 24 Hours: My Active Orders 12/10/20 12:10 Sodium Chloride 0.9% [Saline Flush] 10 ml FLUSH ASDIRECTED PRN Peripheral IV Insertion Adult [OM.PC] Routine
[2020-12-10 12:49] LABS: ANION GAP 16.6 mmol/L (5-15); CHLORIDE,CL 105 mmol/L (98-107); SODIUM,NA 141 mmol/L (136-145)
[2020-12-10] MEDS: Meclizine 25 MG Tab PO ONE (14:14)
--- NOTE | 2020-12-10 16:08 | CT ---
[id number] CT/CT Head WO IV EXAM: CT Head WO IV CLINICAL DATA: LIGHTHEADED. COMPARISON STUDY: May 2020. FINDINGS: No intracranial hemorrhage, extra-axial fluid collection, mass, or acute ischemia. No hydrocephalus. Calvarium intact. Mild ethmoid sinus mucosal thickening. Paranasal sinuses are otherwise clear. Mastoid air cells and middle ear cavities are clear. IMPRESSION: Normal examination of the brain. Mata Nogueira MD 12/10/20 [id number] Thank you for allowing us to participate in the care of your patient.
== END 2020-12-10 16:18 | disposition home or self-care (01) ==
LOC: SUPCPDRO 11:38 → VM.ED 11:38
DX: R55 Syncope and collapse (principal); E86.0 Dehydration; Z72.0 Tobacco use; Z86.16 Personal history of COVID-19
CPT/HCPCS: 70450; 80053; 80307; 81001; 82550; 83735; 85025; 96374; 99284; A9270; J2405; J7030

== ENCOUNTER 2023-06-25 07:17 | Emergency (ER) | payer BC, MEDICAID ==
[2023-06-25] MEDS ORDERED: HYDROmorphone 0.5 MG/0.5 ML Syringe IVPUSH ONE (07:45)
[2023-06-25] MEDS ORDERED: Ondansetron 4 MG/2 ML SDV IVPUSH ONE (07:45)
[2023-06-25] MEDS ORDERED: Naloxone 0.4 MG/ML SDV IVPUSH PRN (07:45)
[2023-06-25] MEDS ORDERED: Sodium Chloride 0.9% 1,000 ML IV ONE (07:46)
[2023-06-25 07:53] LABS: BASOPHILS PERCENT AUTO 0.3 % (0.2-1.2); EOSINOPHILS ABSOLUTE AUTO 0.2 x10^3/uL (0.0-0.5); EOSINOPHILS PERCENT AUTO 2.4 % (0.0-4.0); HEMATOCRIT 39.3 % (33.0-47.0); HEMOGLOBIN 13.3 g/dL (12.0-16.0); IMMATURE GRAN ABSOLUTE AUTO 0.01 x10^3/uL (0.00-0.07); LYMPHOCYTES ABSOLUTE AUTO 3.1 x10^3/uL (1.0-4.8); LYMPHOCYTES PERCENT AUTO 49.1 % (25.0-50.0); MEAN CORPUSCULAR HEMOGLOBIN 30.9 pg (26.0-32.0); MEAN CORPUSCULAR HGB CONC 33.8 g/dL (32.0-36.0); MEAN CORPUSCULAR VOLUME 91.2 fL (78.0-93.0); MONOCYTES ABSOLUTE AUTO 0.4 x10^3/uL (0.0-0.8); MONOCYTES PERCENT AUTO 6.6 % (2.0-11.0); NEUTROPHILS ABSOLUTE AUTO 2.6 x10^3/uL (1.8-7.7); NEUTROPHILS PERCENT AUTO 41.4 % (50.0-80.0); PLATELET COUNT,PLT 148 x10^3/uL (130-400); RED BLOOD CELL COUNT 4.31 x10^6/uL (4.00-5.50); WHITE BLOOD CELL COUNT,WBC 6.3 x10^3/uL (4.0-10.0)
[2023-06-25 08:21] LABS: A/G RATIO 1.12; ALANINE AMINOTRANSFERASE,ALT 34 U/L (14-59); ALBUMIN 3.7 g/dL (3.4-5.0); ALKALINE PHOSPHATASE 90 U/L (46-116); ASPARTATE AMNIOTRANSFERASE,AST 26 U/L (15-37); BILIRUBIN TOTAL 0.3 mg/dL (0.2-1.0); BLOOD UREA NITROGEN,BUN 13 mg/dL (7-18); CARBON DIOXIDE,CO2 25 mmol/L (21-32); CHLORIDE,CL 106 mmol/L (98-107); CREATININE 0.6 mg/dL (0.55-1.02); GLUCOSE RANDOM 85 mg/dL (70-99); LIPASE 34 U/L (19-71); POTASSIUM,K 4.1 mmol/L (3.5-5.1); SODIUM,NA 142 mmol/L (136-145)
[2023-06-25 08:22] LABS: ANION GAP 15.1 mmol/L (5-15); C-REACTIVE PROTEIN < 0.50 mg/dL (<=0.50); ESTIMATED GFR 116 mL/min (>=60)
[2023-06-25] MEDS ORDERED: Iopamidol 612 MG/ML 100 ML Bottle IVPUSH ONE (08:26)
[2023-06-25 08:34] LABS: APPEARANCE,URINE CLEAR (CLEAR); BILIRUBIN,URINE SMALL (NEGATIVE); COLOR,URINE YELLOW (YELLOW); GLUCOSE,URINE NEGATIVE (NEGATIVE); KETONES,URINE NEGATIVE (NEGATIVE); LEUKOCYTE ESTERASE,URINE NEGATIVE (NEGATIVE); NITRITE,URINE NEGATIVE (NEGATIVE); OCCULT BLOOD,URINE NEGATIVE (NEGATIVE); PROTEIN,URINE NEGATIVE (NEGATIVE); UROBILINOGEN,URINE 0.2 EU/dL (0.2)
[2023-06-25] MEDS ORDERED: Prochlorperazine 10 MG/2 ML SDV IV ONE (09:44)
== END 2023-06-25 10:04 | disposition home or self-care (01) ==
LOC: VM.ED 07:17
DX: R10.9 Unspecified abdominal pain (principal); Z86.16 Personal history of COVID-19
CPT/HCPCS: 74177; 80053; 81003; 83690; 85025; 86140; 96361; 96374; 96375; 99283; 99284-25; J0780; J1170; J2405; J7030; Q9967

== ENCOUNTER 2024-06-06 08:28 | Emergency (ER) | payer BC, MEDICAID, OTHER ==
[2024-06-06 09:10] LABS: BASOPHILS PERCENT AUTO 0.6 % (0.2-1.2); EOSINOPHILS ABSOLUTE AUTO 0.2 x10^3/uL (0.0-0.5); EOSINOPHILS PERCENT AUTO 3.6 % (0.0-4.0); HEMATOCRIT 37.3 % (33.0-47.0); HEMOGLOBIN 12.8 g/dL (12.0-16.0); IMMATURE GRAN ABSOLUTE AUTO 0.01 x10^3/uL (0.00-0.07); LYMPHOCYTES ABSOLUTE AUTO 3.4 x10^3/uL (1.0-4.8); MEAN CORPUSCULAR HEMOGLOBIN 31.1 pg (26.0-32.0); MEAN CORPUSCULAR HGB CONC 34.3 g/dL (32.0-36.0); MEAN CORPUSCULAR VOLUME 90.8 fL (78.0-93.0); MONOCYTES ABSOLUTE AUTO 0.3 x10^3/uL (0.0-0.8); MONOCYTES PERCENT AUTO 5.5 % (2.0-11.0); NEUTROPHILS ABSOLUTE AUTO 1.5 x10^3/uL (1.8-7.7); NEUTROPHILS PERCENT AUTO 27.1 % (50.0-80.0); PLATELET COUNT,PLT 140 x10^3/uL (130-400); RED BLOOD CELL COUNT 4.11 x10^6/uL (4.00-5.50); WHITE BLOOD CELL COUNT,WBC 5.3 x10^3/uL (4.0-10.0)
[2024-06-06 09:30] LABS: A/G RATIO 1.03; ALANINE AMINOTRANSFERASE,ALT 36 U/L (14-59); ALBUMIN 3.5 g/dL (3.4-5.0); ALKALINE PHOSPHATASE 104 U/L (46-116); ASPARTATE AMNIOTRANSFERASE,AST 23 U/L (15-37); BILIRUBIN TOTAL 0.3 mg/dL (0.2-1.0); BLOOD UREA NITROGEN,BUN 8 mg/dL (7-18); CALCIUM 9.1 mg/dL (8.5-10.1); CARBON DIOXIDE,CO2 25 mmol/L (21-32); CHLORIDE,CL 107 mmol/L (98-107); CREATININE 0.6 mg/dL (0.55-1.02); GLUCOSE RANDOM 84 mg/dL (70-99); PROTEIN TOTAL,TP 6.9 g/dL (6.4-8.2); SODIUM,NA 143 mmol/L (136-145)
[2024-06-06 09:34] LABS: ESTIMATED GFR 115 mL/min (>=60)
== END 2024-06-06 10:20 | disposition home or self-care (01) ==
LOC: VM.ED 08:28
DX: R07.89 Other chest pain (principal); Z90.49 Acquired absence of other specified parts of digestive tract; Z98.84 Bariatric surgery status; Z90.710 Acquired absence of both cervix and uterus; Z86.16 Personal history of COVID-19
CPT/HCPCS: 71046; 80053; 83735; 84484; 85025; 93005; 99285

== ENCOUNTER 2025-03-13 10:21 | Emergency (ER) | payer OTHER ==
[2025-03-13] MEDS ORDERED: Sodium Chloride 0.9% 10 ML Syringe FLUSH PRN (10:23)
[2025-03-13 10:52] LABS: BASOPHILS ABSOLUTE AUTO 0.0 x10^3/uL (0.0-0.2); BASOPHILS PERCENT AUTO 0.4 % (0.2-1.2); EOSINOPHILS ABSOLUTE AUTO 0.2 x10^3/uL (0.0-0.5); EOSINOPHILS PERCENT AUTO 3.1 % (0.0-4.0); IMMATURE GRAN ABSOLUTE AUTO 0.01 x10^3/uL (0.00-0.07); IMMATURE GRAN PERCENT AUTO 0.20 % (0.00-0.43); LYMPHOCYTES ABSOLUTE AUTO 2.8 x10^3/uL (1.0-4.8); LYMPHOCYTES PERCENT AUTO 50.5 % (25.0-50.0); MONOCYTES ABSOLUTE AUTO 0.4 x10^3/uL (0.0-0.8); MONOCYTES PERCENT AUTO 6.4 % (2.0-11.0); NEUTROPHILS ABSOLUTE AUTO 2.2 x10^3/uL (1.8-7.7); NEUTROPHILS PERCENT AUTO 39.4 % (50.0-80.0); PLATELET COUNT,PLT 169 x10^3/uL (130-400); RED BLOOD CELL COUNT 4.11 x10^6/uL (4.00-5.50); WHITE BLOOD CELL COUNT,WBC 5.5 x10^3/uL (4.0-10.0)
[2025-03-13 11:14] LABS: A/G RATIO 1.06; ALANINE AMINOTRANSFERASE,ALT 38 U/L (14-59); ASPARTATE AMNIOTRANSFERASE,AST 28 U/L (15-37); BILIRUBIN TOTAL 0.3 mg/dL (0.2-1.0); BLOOD UREA NITROGEN,BUN 6 mg/dL (7-18); CARBON DIOXIDE,CO2 22 mmol/L (21-32); CHLORIDE,CL 107 mmol/L (98-107); CREATININE 0.7 mg/dL (0.55-1.02); GLUCOSE RANDOM 86 mg/dL (70-99); POTASSIUM,K 4.1 mmol/L (3.5-5.1); PROTEIN TOTAL,TP 6.8 g/dL (6.4-8.2); SODIUM,NA 141 mmol/L (136-145)
[2025-03-13 11:16] LABS: ESTIMATED GFR 110 mL/min (>=60)
[2025-03-13 11:25] LABS: PTT,PARTIAL THROMBOPLSTIN TIME 24.7 SEC (24.3-33.4)
[2025-03-13 11:25] LABS: INR 0.9 (0.9-1.1)
[2025-03-13 11:26] LABS: D-DIMER QUANTITATIVE < 0.19 mg/LFEU (<=0.58)
[2025-03-13] MEDS: Ketorolac 15 MG/ML SDV IVPUSH ONE (11:53)
== END 2025-03-13 12:30 | disposition home or self-care (01) ==
LOC: MERGE 10:21 → VM.ED 10:21
DX: R07.89 Other chest pain (principal); M94.0 Chondrocostal junction syndrome [Tietze]
CPT/HCPCS: 71045; 80053; 84484; 85025; 85379; 85610; 85730; 87428-QW; 93005; 93010; 96374; 99284; 99285-25; J1885